=== PATIENT | male | born 1985 | race Caucasian/White ===

== ENCOUNTER → 2017-11-20 | Outpatient (REF) | payer OTHER ==
[2017-11-20 17:15] LABS: FREE T4 1.09 NG/DL (0.76-1.46)
== END ==
LOC: M SFHCCLAY 11:35
DX: E89.0 Postprocedural hypothyroidism (principal)
CPT/HCPCS: 84443

== ENCOUNTER → 2019-04-12 | Outpatient (REF) | payer OTHER ==
[2019-04-12 17:35] LABS: ALBUMIN 4.1 GM/DL (3.2-5.2); ALT/SGPT 27 U/L (12-78); BILIRUBIN,TOTAL 1.4 MG/DL (0.2-1.0); BLOOD UREA NITROGEN 13 MG/DL (7-18); CALCIUM LEVEL 9.1 MG/DL (8.5-10.1); CARBON DIOXIDE LEVEL 28 MEQ/L (21-32); CHLORIDE LEVEL 107 MEQ/L (98-107); CHOLESTEROL LEVEL 133 MG/DL (<200); CHOLESTEROL RISK RATIO 2.111 (<5); CREATININE FOR GFR 0.87 MG/DL (0.70-1.30); FREE T4 1.12 NG/DL (0.76-1.46); GLOMERULAR FILTRATION RATE > 60.0 (>60); GLUCOSE, FASTING 94 MG/DL (70-100); HDL CHOLESTEROL 63 MG/DL (>40); LDL CHOLESTEROL 62 MG/DL (<100); NON-HDL-C 70 MG/DL; POTASSIUM SERUM 4.5 MEQ/L (3.5-5.1); SODIUM LEVEL 140 MEQ/L (136-145); TOTAL PROTEIN 7.1 GM/DL (6.4-8.2); TRIGLYCERIDES LEVEL 42 MG/DL (<150)
== END ==
LOC: M SFHCCLAY 10:03
PROVIDERS: ATTEND Nurse Practitioner Family
DX: E89.0 Postprocedural hypothyroidism (principal)

== ENCOUNTER → 2020-06-13 | Outpatient (REF) | payer OTHER ==
[2020-06-13 12:58] LABS: ALT/SGPT 41 U/L (12-78); BILIRUBIN,TOTAL 1.4 MG/DL (0.2-1.0); BLOOD UREA NITROGEN 19 MG/DL (7-18); CARBON DIOXIDE LEVEL 28 MEQ/L (21-32); CHLORIDE LEVEL 107 MEQ/L (98-107); CHOLESTEROL LEVEL 161 MG/DL (<200); CHOLESTEROL RISK RATIO 2.476 (<5); CREATININE FOR GFR 0.82 MG/DL (0.70-1.30); FREE T4 1.12 NG/DL (0.76-1.46); GLOMERULAR FILTRATION RATE > 60.0 (>60); GLUCOSE, FASTING 90 MG/DL (70-100); HDL CHOLESTEROL 65 MG/DL (>40); LDL CHOLESTEROL 82 MG/DL (<100); NON-HDL-C 96 MG/DL; POTASSIUM SERUM 4.3 MEQ/L (3.5-5.1); SODIUM LEVEL 139 MEQ/L (136-145); TRIGLYCERIDES LEVEL 68 MG/DL (<150)
[2020-06-14 18:08] LABS: TESTOSTERONE FREE (DIRECT) 12.8 pg/mL (8.7-25.1)
== END ==
LOC: M SFHCCLAY 11:22
PROVIDERS: ATTEND Nurse Practitioner Family
DX: E03.1 Congenital hypothyroidism without goiter (principal)

== ENCOUNTER → 2022-07-16 | Outpatient (REF) | payer OTHER ==
[2022-07-16 17:22] LABS: BASO # 0.1 10^3/uL (0.0-0.2); EOS # 0.3 10^3/uL (0.0-0.5); EOS % 3.5 % (0.0-3.0); HEMATOCRIT 45.9 % (42.0-52.0); HEMOGLOBIN 15.6 g/dl (13.5-17.5); LYMPH # 2.6 10^3/uL (1.5-5.0); LYMPH % 26.9 % (24.0-44.0); MEAN CORPUSCULAR HEMOGLOBIN 31.5 pg (27.0-33.0); MEAN CORPUSCULAR VOLUME 92.5 fl (80.0-96.0); MONO # 0.7 10^3/uL (0.0-0.8); MONO % 7.4 % (2.0-8.0); NEUTROPHILS # 5.8 10^3/uL (1.5-8.5); NEUTROPHILS % 60.6 % (36.0-66.0); PLATELET COUNT, AUTOMATED 359 10^3/uL (150-450); RED BLOOD COUNT 4.96 10^6/uL (4.30-6.10); WHITE BLOOD COUNT 9.6 10^3/uL (4.0-10.0)
[2022-07-16 17:57] LABS: ALBUMIN 4.2 GM/DL (3.2-5.2); ALT/SGPT 148 U/L (12-78); BLOOD UREA NITROGEN 14 MG/DL (7-18); CALCIUM LEVEL 9.5 MG/DL (8.5-10.1); CARBON DIOXIDE LEVEL 31 MEQ/L (21-32); CHLORIDE LEVEL 104 MEQ/L (98-107); CHOLESTEROL LEVEL 168 MG/DL (<200); CHOLESTEROL RISK RATIO 3.169 (<5); FREE T4 0.89 NG/DL (0.76-1.46); GLOMERULAR FILTRATION RATE > 60.0 (>60); GLUCOSE, FASTING 88 MG/DL (70-100); HDL CHOLESTEROL 53 MG/DL (>40); LDL CHOLESTEROL 80 MG/DL (<100); NON-HDL-C 115 MG/DL; POTASSIUM SERUM 4.2 MEQ/L (3.5-5.1); SODIUM LEVEL 139 MEQ/L (136-145); TOTAL PROTEIN 7.7 GM/DL (6.4-8.2); TRIGLYCERIDES LEVEL 176 MG/DL (<150)
[2022-07-16 19:09] LABS: HEMOGLOBIN A1c 4.9 %
== END ==
LOC: M SFHCCLAY 12:19
PROVIDERS: ATTEND Nurse Practitioner Family
DX: Z00.00 Encounter for general adult medical examination without abnormal findings (principal); Z13.1 Encounter for screening for diabetes mellitus; E89.0 Postprocedural hypothyroidism

== ENCOUNTER 2022-09-22 14:03 | Emergency (ER) | payer OTHER ==
[~2022-09-22] VITALS: Ht 172.7 cm; Wt 99.3 kg
[2022-09-22 14:03] VITALS: BP 140/92
[~2022-09-22 14:03] MED LIST: RALTEGRAVIR 400 MG TAB (ISENTRESS) PO SCH; TRUVADA 200MG/300MG TABLET PO SCH
[2022-09-22] MEDS ORDERED: LEVO200T4 (14:28)
[2022-09-22] MEDS ORDERED: EXPOSURE KIT-ADULT 7 DAY SUPPLY PO ONE (14:55)
[2022-09-22 15:13] LABS: BASO # 0.1 10^3/uL (0.0-0.2); BASO % 1.2 % (0.0-1.0); EOS # 0.4 10^3/uL (0.0-0.5); EOS % 5.8 % (0.0-3.0); HEMATOCRIT 45.8 % (42.0-52.0); HEMOGLOBIN 15.3 g/dl (13.5-17.5); LYMPH # 1.8 10^3/uL (1.5-5.0); LYMPH % 25.4 % (24.0-44.0); MEAN CORPUSCULAR HEMOGLOBIN 30.7 pg (27.0-33.0); MEAN CORPUSCULAR HGB CONC 33.4 g/dl (32.0-36.5); MONO # 0.7 10^3/uL (0.0-0.8); MONO % 10.5 % (2.0-8.0); NEUTROPHILS # 3.9 10^3/uL (1.5-8.5); NEUTROPHILS % 56.7 % (36.0-66.0); PLATELET COUNT, AUTOMATED 277 10^3/uL (150-450); RED BLOOD COUNT 4.98 10^6/uL (4.30-6.10); WHITE BLOOD COUNT 6.9 10^3/uL (4.0-10.0)
[2022-09-22] MEDS ORDERED: RALT40TA PO (15:13)
[2022-09-22] MEDS ORDERED: EMTR1TAB16 PO (15:13)
[2022-09-22 15:40] LABS: ALBUMIN 4.6 G/DL (3.2-5.2); ALKALINE PHOSPHATASE 70 U/L (46-116); ALT/SGPT 55 U/L (7.0-40); AST/SGOT 33 U/L (<34); BILIRUBIN,TOTAL 1.5 MG/DL (0.3-1.2); BLOOD UREA NITROGEN 13 MG/DL (9-23); CALCIUM LEVEL 9.6 MG/DL (8.5-10.1); CARBON DIOXIDE LEVEL 27 MMOL/L (20-31); CHLORIDE LEVEL 106 MMOL/L (98-107); GLOMERULAR FILTRATION RATE > 60.0 (>60); GLUCOSE, FASTING 81 MG/DL (60-100); POTASSIUM SERUM 4.2 MMOL/L (3.5-5.1); SODIUM LEVEL 141 MMOL/L (136-145); TOTAL PROTEIN 7.6 G/DL (5.7-8.2)
[2022-09-22 15:42] LABS: HEPATITIS B SURFACE ANTIBODY NEGATIVE (POSITIVE)
[2022-09-22 15:54] LABS: HEPATITIS B SURFACE ANTIGEN NEGATIVE (NEGATIVE)
[2022-09-22] MEDS ORDERED: RALTEGRAVIR 400 MG TAB (ISENTRESS) PO ONE (16:00)
[2022-09-22] MEDS ORDERED: TRUVADA 200MG/300MG TABLET PO ONE (16:00)
[2022-09-22 16:16] LABS: HEPATITIS C VIRUS ABY INDEX 0.1 INDEX (<0.8)
[2022-09-22 18:11] LABS: HIV 1&2 SCREEN CENTAUR NEGATIVE (NEGATIVE)
== END 2022-09-22 15:56 | disposition home or self-care (01) ==
LOC: M ED 14:03
DX: Z57.9 Occupational exposure to unspecified risk factor (principal); Z77.21 Contact with and (suspected) exposure to potentially hazardous body fluids

== ENCOUNTER → 2022-10-31 | Outpatient (CLI) | payer OTHER ==
[~2022-10-31] MED LIST changes: +EMTR1TAB16 PO; +LEVO200T4; +RALT40TA PO; -RALTEGRAVIR 400 MG TAB (ISENTRESS) PO SCH; -TRUVADA 200MG/300MG TABLET PO SCH
== END ==
LOC: M SLEEP HO 14:47
PROVIDERS: ATTEND Nurse Practitioner Family
DX: R40.0 Somnolence (principal); R06.83 Snoring

== ENCOUNTER → 2023-02-17 | Outpatient (REF) | payer OTHER ==
[2023-02-17 11:31] LABS: ALBUMIN 4.5 G/DL (3.2-5.2); ALKALINE PHOSPHATASE 54 U/L (46-116); ALT/SGPT 29 U/L (7.0-40); AST/SGOT 18 U/L (<34); BILIRUBIN,TOTAL 1.2 MG/DL (0.3-1.2); BLOOD UREA NITROGEN 21 MG/DL (9-23); CALCIUM LEVEL 9.1 MG/DL (8.5-10.1); CARBON DIOXIDE LEVEL 27 MMOL/L (20-31); CHLORIDE LEVEL 104 MMOL/L (98-107); CREATININE FOR GFR 0.78 MG/DL (0.70-1.30); GLOMERULAR FILTRATION RATE > 60.0 (>60); GLUCOSE, FASTING 89 MG/DL (60-100); POTASSIUM SERUM 3.9 MMOL/L (3.5-5.1); SODIUM LEVEL 138 MMOL/L (136-145); TOTAL PROTEIN 7.5 G/DL (5.7-8.2)
[2023-02-17 11:33] LABS: THYROID STIMULATING HORMONE 7.437 uIU/ML (0.55-4.78)
[2023-02-17 11:34] LABS: FREE T4 1.42 NG/DL (0.89-1.76)
[2023-02-18 12:09] LABS: TESTOSTERONE FREE (DIRECT) 10.2 pg/mL (8.7-25.1)
== END ==
LOC: M SFHCCLAY 08:47
PROVIDERS: ATTEND Nurse Practitioner Family
DX: E89.0 Postprocedural hypothyroidism (principal); R53.83 Other fatigue

== ENCOUNTER → 2024-04-06 | Outpatient (REF) | payer OTHER ==
[2024-04-06 11:48] LABS: BASO # 0.1 10^3/uL (0.0-0.2); BASO % 0.9 % (0.0-1.0); EOS # 0.2 10^3/uL (0.0-0.5); EOS % 3.5 % (0.0-3.0); HEMATOCRIT 44.8 % (42.0-52.0); HEMOGLOBIN 15.7 g/dl (13.5-17.5); LYMPH % 29.4 % (24.0-44.0); MEAN CORPUSCULAR HEMOGLOBIN 32.2 pg (27.0-33.0); MONO # 0.5 10^3/uL (0.0-0.8); MONO % 7.7 % (2.0-8.0); NEUTROPHILS # 3.9 10^3/uL (1.5-8.5); NEUTROPHILS % 58.2 % (36.0-66.0); PLATELET COUNT, AUTOMATED 303 10^3/uL (150-450); RED BLOOD COUNT 4.87 10^6/uL (4.30-6.10); WHITE BLOOD COUNT 6.6 10^3/uL (4.0-10.0)
[2024-04-06 11:53] LABS: ALBUMIN 4.2 G/DL (3.2-5.2); ALKALINE PHOSPHATASE 53 U/L (46-116); ALT/SGPT 27 U/L (7.0-40); AST/SGOT 18 U/L (<34); BILIRUBIN,TOTAL 1.2 MG/DL (0.3-1.2); BLOOD UREA NITROGEN 13 MG/DL (9-23); CALCIUM LEVEL 9.1 MG/DL (8.5-10.1); CARBON DIOXIDE LEVEL 27 MMOL/L (20-31); CHLORIDE LEVEL 108 MMOL/L (98-107); CHOLESTEROL LEVEL 164 MG/DL (<200); CHOLESTEROL RISK RATIO 2.66 (<5); CREATININE FOR GFR 0.67 MG/DL (0.70-1.30); GLOMERULAR FILTRATION RATE > 60.0 (>60); GLUCOSE, FASTING 91 MG/DL (60-100); HDL CHOLESTEROL 61.5 MG/DL (>40); LDL CHOLESTEROL 87.5 MG/DL (<100); NON-HDL-C 102.5 MG/DL; POTASSIUM SERUM 4.2 MMOL/L (3.5-5.1); SODIUM LEVEL 140 MMOL/L (136-145); THYROID STIMULATING HORMONE 1.358 uIU/ML (0.55-4.78); TOTAL PROTEIN 6.7 G/DL (5.7-8.2); TRIGLYCERIDES LEVEL 75 MG/DL (<150)
[2024-04-06 11:54] LABS: FREE T4 1.53 NG/DL (0.89-1.76)
[2024-04-06 12:08] LABS: HEMOGLOBIN A1c 4.7 % (4.0-6.0)
== END ==
LOC: M SFHCCLAY 07:16
PROVIDERS: ATTEND Nurse Practitioner Family
DX: Z00.00 Encounter for general adult medical examination without abnormal findings (principal); E89.0 Postprocedural hypothyroidism; R53.83 Other fatigue; Z13.1 Encounter for screening for diabetes mellitus

== ENCOUNTER → 2025-06-15 | Outpatient (REF) | payer OTHER | LOC: M SMT 13:06 | PROVIDERS: ATTEND Urology | DX: Z30.2 Encounter for sterilization (principal) ==